=== PATIENT | male | born 1975 | race Caucasian/White ===

== ENCOUNTER 2018-09-01 07:40 | Outpatient (CLI) | payer BC ==
--- NOTE | 2018-09-01 09:31 | RAD ---
RIGHT HAND THREE VIEWS: HISTORY: Right small finger pain. COMPARISON: None. FINDINGS: Three views of the right hand show no evidence of acute fracture or dislocation. No degenerative nellie nges are seen. Mild soft tissue swelling of the small finger is seen. IMPRESSION: No evidence of acute osseous abnormality. POS: [facility]
== END 2018-09-01 07:41 | disposition home or self-care (01) ==
LOC: SCSRAD 07:40
PROVIDERS: ATTEND Family Medicine
DX: M79.644 Pain in right finger(s) (principal)